=== PATIENT | male | born 1945 | race Caucasian/White ===

== ENCOUNTER 2024-01-25 10:08 | Outpatient (OUT) | payer MEDICARE, OTHER, SELFPAY ==
--- NOTE | 2024-01-25 | XR_ITS ---
The [address] [address] Patient Name: DANYELLE CAMARENA MRN: [id number] date: 1945 Sex: M Assigned Patient Location: Current Patient Location: Accession/Order Number: [id number] Exam Date: 01/25/2024 10:11 Report Date: 01/26/2024 07:27 At the request of: DARCIE JIMENEZ Procedure: XR lumbar spine min 4V EXAMINATION: XR lumbar spine min 4V HISTORY: LOWER BACK PAIN COMPARISON: No relevant comparison available. FINDINGS: BONES: No fracture, significant spondylolisthesis, or bone lesion. No change in alignment during flexion and extension. Mild degenerative facet arthropathy L3-L4 through L5-S1. DISC SPACES: Mild narrowing L1-L2, L2-L3, L5-S1. PARASPINOUS: Negative. No paraspinous abnormality is seen. OTHER: Negative. XR/XR lumbar spine min 4V IMPRESSION: 1. Multilevel mild degenerative disc disease and mild degenerative facet arthropathy. Electronically authenticated by: ART HUGHES Date: 01/26/2024 07:27
== END 2024-01-25 10:09 | disposition home or self-care (01) ==
PROVIDERS: Visit Provider Orthopaedic Surgery Orthopaedic Surgery of the Spine
DX: M54.50 Low back pain, unspecified (principal); M51.369 Other intervertebral disc degeneration, lumbar region without mention of lumbar back pain or lower extremity pain
CPT/HCPCS: 72110

== ENCOUNTER 2024-02-08 08:24 | Outpatient (OUT) | payer MEDICARE, OTHER, SELFPAY ==
--- NOTE | 2024-02-08 08:28 | MR_ITS ---
The [address] [address] Patient Name: DANYELLE CAMARENA MRN: [id number] date: 1945 Sex: M Assigned Patient Location: MRI Current Patient Location: MRI Accession/Order Number: [id number] Exam Date: 02/08/2024 08:43 Report Date: 02/08/2024 09:43 At the request of: MADELIN MASON Procedure: MR lumbar spine wo con MR lumbar spine wo con, 02/08/2024 8:43 AM EST INDICATION: Lumbar Back Pain, Spondylosis Of Lumbar Region COMPARISON: Prior x-ray of the lumbar spine dated 01/25/[address] of the abdomen dated 07/28/2014 TECHNIQUE: Multiplanar, multisequence MRI images of lumbar spine were obtained without contrast. FINDINGS: For dictation purposes, the lowest complete disc space in the lumbar spine considered as L5-S1. Bilateral renal lesions with T2 prolongation not fully characterized by this study and statistically may suggest simple renal cyst. There is signal abnormality on T1 and T2-weighted images in the vertebral bodies of visualized spine that may suggest bone marrow reconversion in appropriate clinical setting. There is loss of normal physiologic lumbar lordosis. The vertebral height is preserved. The conus medullaris is at the level of L1. No signal abnormality within the visualized spinal cord is noted. Possible lipid poor hemangioma within the body of L1. No neural foraminal narrowing or canal stenoses at the level of T12-L1 and L1-L2 is noted. At the level of L2-L3, there are disc bulge with mild bilateral neuroforaminal narrowing and no canal stenosis. At the level of L3-4, there are disc bulge with bilateral moderate neuroforaminal narrowing and moderate canal stenosis. There is ligamentum flavum thickening and epidural lipomatosis and facet joint arthrosis contributing to canal stenosis at this level. At the level of L4-5, there are disc bulge with severe bilateral neuroforaminal narrowing and severe canal stenosis.There is ligamentum flavum thickening and epidural lipomatosis and facet joint arthrosis contributing to canal stenosis at this level. At the level of L5-S1, there are disc bulge with with superimposed left lateral disc extrusion with inferior migration with severe bilateral neuroforaminal narrowing and no canal stenosis. Bilateral S1 nerve roots are in close contact with the disc bulge in the lateral recesses. The paraspinal muscles are unremarkable. MR/MR lumbar spine wo con IMPRESSION: Moderate to severe degenerative changes of lumbar spine in particular at L3-L4, L4-L5 and L5-S1. Electronically authenticated by: PALLAVI ZENG Date: 02/08/2024 09:43
--- OUTSIDE RECORDS SUMMARY | 2024-02-08 08:30 | XMS_ITS | CCD ---
Author Organization [facility] Care Team Providers Care Forest Firefighter Name Role Phone LAURE ARDON Referring Unavailable BELINDA STEPHEN Primary Care Unavailable ANGEL JIM V. Referring Unavailable BELINDA STEPHEN Primary Care Unavailable KIRIT SYKES Admitting Unavailable KIRIT SYKES Attending Unavailable BELINDA STEPHEN Primary Care Unavailable ANNETTE BAILON Attending Unavailable BELINDA STEPHEN Primary Care Unavailable ANNETTE BAILON Attending Unavailable BELINDA STEPHEN Primary Care Unavailable LAURE ARDON Referring Unavailable BELINDA STEPHEN Primary Care Unavailable LAURE ARDON Referring Unavailable BELINDA STEPHEN Primary Care Unavailable LAURE ARDON Attending Unavailable BELINDA STEPHEN Referring Unavailable BELINDA STEPHEN Primary Care Unavailable LAURE ARDON Attending Unavailable BELINDA STEPHEN Referring Unavailable BELINDA STEPHEN Primary Care Unavailable LAURE ARDON Attending Unavailable BELINDA STEPHEN Referring Unavailable BELINDA STEPHEN Primary Care Unavailable Belinda Stephen MD Unavailable [phone] Belinda Stephen MD Primary Care Provider Belinda Stephen MD Primary Care Provider [phone] RICH GRIFFITH Attending Unavailab BELINDA Candelaria Attending Unavailable SOLEDAD CABRAL Attending Unavailab ARSALAN David Attending Unavailable SOLEDAD CABRAL Referring Unavailab ARSALAN David Attending Unavailable SOLEDAD CABRAL Referring Unavailab ARSALAN David Attending Unavailable SOLEDAD CABRAL Referring Unavailab AAMIR Mcfarland Attending Unavailable CABRAL, SOLEDAD Mclain Referring Unavailab le CABRAL, SOLEDAD Mclain Attending Unavailab le CABRAL, SOLEDAD Mclain Referring Unavailab le CLAYARSALAN Attending Unavailable CABRAL, SOLEDAD Mclain Referring Unavailab le JOAQUIN, JAIR Attending Unavailable CABRAL, SOLEDAD Mclain Referring Unavailab le JOAQUIN, JAIR Attending Unavailable CABRAL, SOLEDAD A Referring Unavailab le JOAQUIN, JAIR Attending Unavailable CABRAL, SOLEDAD Mclain Referring Unavailab le BLACKSTON, AAMIR Christensen Attending Unavailable CABRAL, SOLEDAD Mclain Referring Unavailab le JOAQUIN, JAIR Attending Unavailable CABRAL, SOLEDAD Mclain Referring Unavailab le JOAQUIN, JAIR Attending Unavailable CABRAL, SOLEDAD Mclain Referring Unavailab le JOAQUIN, JAIR Attending Unavailable CABRAL, SOLEDAD Mclain Referring Unavailab le CABRAL, SOLEDAD Mclain Attending Unavailab le CABRAL, SOLEDAD Mclain Attending Unavailab LAURE Maria. Referring Unavailable BELINDA STEPHEN Primary Care Unavailable REX STANTON Attending Unavailable BELINDA STEPHEN Referring Unavailable BELINDA STEPHEN Primary Care Unavailable ALEXANDRIA THOMSON Referring Unavailable BELINDA STEPHEN Primary Care Unavailable Allergies Allergy Classification Reported Allergen(s) Allergy Type Date of Onset Reaction(s) Facility (3 sources) Contrast media; Translations: [DYE] Propensity to adverse reactions to drug (disorder) 8 [facility] (8 sources) Mason - fruit; Translations: [ORANGE (FOOD COLOR)] Propensity to adverse reactions to food (disorder) 0 Other (See Comments) [facility] (20 sources) Penicillins; Translations: [PENICILLINS] Propensity to adverse reactions to drug (disorder) 8 Other (See Comments) [facility] (20 sources) Warfarin; Translations: [WARFARIN] Drug Allergy 8 GI bleeding [facility] Medications Current Medications Medication Drug Class(es) Dates Sig (Normalized) Sig (Original) aspirin 81 mg delayed release oral tablet (20 sources) Platelet Aggregation Inhibitor, Nonsteroidal Anti-inflammatory Drug take 1 tablet by mouth in the morning aspirin 81 MG EC tablet Take 81 mg by mouth in the morning. Active atorvastatin 20 mg oral tablet (20 sources) HMG-CoA Reductase Inhibitor Start: 11-29-2022 End: 01-17-2024 take 1 tablet by mouth in the morning atorvastatin (Lipitor) 20 MG tablet Take 20 mg by mouth in the morning. 11/29/2022 Active lisinopril 10 mg oral tablet (20 sources) Angiotensin Converting Enzyme Inhibitor Start: 11-29-2022 End: 01-17-2024 take 1 tablet by mouth in the morning lisinopril 10 MG tablet Take 10 mg by mouth in the morning and 10 mg in the evening. 11/29/2022 Active meclizine hydrochloride 25 mg oral tablet (20 sources) Antiemetic Start: 07-26-2023 take 0.5 tablet by mouth twice daily as needed for nausea meclizine (Antivert) 25 MG tablet Indications: Vertigo Take 0.5 tablets (12.5 mg) by mouth 2 (two) times a day as needed for dizziness or nausea 10 tablet 07/26/2023 Active 24 hr metoprolol succinate 50 mg extended release oral tablet (20 sources) beta-Adrenergic Natalia Start: 01-13-2023 End: 01-17-2024 take 1 tablet by mouth once daily metoprolol succinate XL (TOPROL XL) 50 mg 24 hr tablet Take 1 tablet (50 mg total) by mouth nightly. 90 tablet 2 01/17/2024 Active nitroglycerin 0.4 mg sublingual tablet (2 sources) Nitrate Vasodilator Start: 01-19-2020 nitroglycerin (NITROSTAT) 0.4 MG SL tablet Indications: Abnormal stress test , Hyperlipidemia, unspecified hyperlipidemia type 1 under the tongue as needed for angina, may repeat q5mins for up three doses 30 tablet 3 01/19/2020 Active Completed/Discontinued Medications Medication Drug Class(es) Dates Sig (Normalized) Sig (Original) predniSONE 10 mg oral tablet (9 sources) Start: 01-15-2024 End: 01-21-2024 take 1 tablet by mouth in the morning predniSONE (Deltasone) 10 MG tablet Indications: Low back pain radiating to left lower extremity Take 1 tablet (10 mg) by mouth in the morning and 1 tablet (10 mg) before bedtime. Do all this for 5 days. 10 tablet 01/15/2024 01/21/2024 Discontinued (Therapy completed) Start: 11-02-2023 End: 11-07-2023 take 1 tablet by mouth in the morning predniSONE (Deltasone) 10 MG tablet Indications: Lumbar pain Take 1 tablet (10 mg) by mouth in the morning and 1 tablet (10 mg) before bedtime. Do all this for 5 days. 10 tablet 11/02/2023 11/07/2023 Active Problems Active Problems Problem Classification Problem Date Documented Da te Episodic/Chronic Asthma (20 sources) Reactive airway disease; Translations: [Unspecified asthma, uncomplicated] Onset: 02-06-2023 02-06-2023 Chronic Cancer of prostate (20 sources) Malignant neoplasm of prostate; Translations: [Malignant tumor of prostate] Onset: 05-19-2020 02-06-2023 Chronic Cardiac dysrhythmias (20 sources) Irregular heart beat; Translations: [Cardiac arrhythmia, unspecified] Onset: 02-06-2023 02-06-2023 Chronic Conditions associated with dizziness or vertigo (20 sources) Meniere's disease of left inner ear; Translations: [Meniere's disease, left ear] Onset: 02-06-2023 02-06-2023 Chronic Conditions associated with dizziness or vertigo (1 source) Vertigo; Translations: [Dizziness and giddiness] 11-28-2023 Episodic Coronary atherosclerosis and other heart disease (20 sources) Coronary arteriosclerosis; Translations: [Atherosclerotic heart disease of [place] coronary artery without angina pectoris] Onset: 05-17-2020 02-06-2023 Chronic Disorders of lipid metabolism (20 sources) Hyperlipidemia; Translations: [Hyperlipidemia, unspecified] Onset: 04-23-2017 02-06-2023 Chronic Diverticulosis and diverticulitis (20 sources) Diverticulosis of sigmoid colon; Translations: [Diverticulosis of large intestine without perforation or abscess without bleeding] Onset: 02-06-2023 02-06-2023 Chronic Essential hypertension (20 sources) Essential hypertension; Translations: [Essential (primary) hypertension] Onset: 02-06-2023 02-06-2023 Chronic Other ear and sense organ disorders (20 sources) Asymmetrical sensorineural hearing loss; Translations: [Sensorineural hearing loss, bilateral] Onset: 02-06-2023 02-06-2023 Chronic Other nervous system disorders (20 sources) Chronic pain; Translations: [Other chronic pain] Onset: 02-06-2023 02-06-2023 Chronic Other nutritional; endocrine; and metabolic disorders (20 sources) Body mass index 30+ - obesity; Translations: [Obesity, unspecified] Onset: 02-16-2020 02-06-2023 Chronic Other screening for suspected conditions (not mental disorders or infectious disease) (3 sources) Abnormal findings on diagnostic imaging of other specified body structures; Translations: [MRI scan abnormal] Onset: 07-17-2023 07-17-2023 Chronic Other upper respiratory disease (20 sources) Allergic rhinitis; Translations: [Allergic rhinitis, unspecified] Onset: 02-06-2023 02-06-2023 Chronic Lindsey-; endo-; and myocarditis; cardiomyopathy (except that caused by tuberculosis or sexually transmitted disease) (20 sources) Cardiomyopathy; Translations: [Other cardiomyopathies] Onset: 02-06-2023 02-06-2023 Chronic Spondylosis; intervertebral disc disorders; other back problems (2 sources) Lumbar arthritis; Translations: [Spondylosis without myelopathy or radiculopathy, lumbar region] 01-21-2024 Chronic Transient cerebral ischemia (20 sources) Transient cerebral ischemia; Translations: [Transient cerebral ischemic attack, unspecified] Onset: 02-06-2023 02-06-2023 Chronic Unclassified (1 source) Prostate cancer ([facility]) [C61] Onset: 08-28-2023 Unclassified (1 source) Pre-op Exam Onset: 08-07-2023 Urinary tract infections (1 source) Urinary tract infection, site not specified; Translations: [Urinary tract infection, site not specified] Onset: 08-13-2023 Episodic Past or Other Problems Problem Classification Problem Date Documented Date Episodic/Chronic Calculus of urinary tract (20 sources) Kidney stone; Translations: [Calculus of kidney] Onset: 02-06-2023 02-06-2023 Episodic Complications of surgical procedures or medical care (20 sources) Delayed recovery from general anesthesia; Translations: [Other complications of anesthesia, initial encounter] Onset: 02-06-2023 02-06-2023 Episodic Mood disorders (2 sources) Mood disorders Onset: 07-30-2019 07-30-2019 Other connective tissue disease (20 sources) Increased muscle tone; Translations: [Other specified disorders of muscle] Onset: 02-06-2023 02-06-2023 Episodic Other ear and sense organ disorders (20 sources) Bilateral tinnitus; Translations: [Tinnitus, bilateral] Onset: 02-06-2023 02-06-2023 Episodic Other lower respiratory disease (20 sources) Cough; Translations: [Cough] Onset: 02-06-2023 02-06-2023 Episodic Other screening for suspected conditions (not mental disorders or infectious disease) (20 sources) Electrocardiogram abnormal; Translations: [Abnormal electrocardiogram [ECG] [EKG]] Onset: 01-19-2020 Resolved: 04-30-2018 02-06-2023 Episodic Spondylosis; intervertebral disc disorders; other back problems (20 sources) Sacroiliac disorder; Translations: [Sacrococcygeal disorders, not elsewhere classified] Onset: 02-06-2023 02-06-2023 Episodic Unclassified (2 sources) Onset: 07-30-2019 07-30-2019 Results Test Name Value Interpretation Reference Range Facility Lipid 1996 panelon 4 Cholesterol [Mass/Vol] 119 mg/dL Low 150-[address] [facility] Comment on above: Performed By: #### 2 4331-1 #### [facility] ([id number]) [address] [place] [address], [facility] [address] [place] [address] Cholesterol in HDL [Mass/Vol] 36 mg/dL Low >[address] [facility] Comment on above: Result Comment: HDL <40 mg/dL - High Risk HDL > or = 40mg/dL- Desirable HDL >60 mg/dL - Negative Risk Performed By: #### 2 4331-1 #### [facility] ([id number]) [address] [place] [address], [address] [place] [address] Cholesterol in LDL [Mass/Vol] 55 mg/dL Normal <[address] [facility] Comment on above: Result Comment: LDL <100 mg/dL - Desirable LDL >160 mg/dL - High Risk Performed By: #### 2 4331-1 #### [facility] ([id number]) [address], [address] [place] [address] Cholesterol in VLDL [Mass/Vol] 28 mg/dL Normal 0-[address] [facility] Comment on above: Performed By: #### 2 4331-1 #### [facility] ([id number]) [address] [address] CHOLESTEROL:HDL 3.3 Normal 1.0-5.[address] [facility] Comment on above: Performed By: #### 2 4331-1 #### [facility] ([id number]) [address], [facility] [address] [place] [address] Triglyceride [Mass/Vol] 140 mg/dL Normal 27-[address] [facility] Comment on above: Performed By: #### 2 4331-1 #### [facility] ([id number]) [address] [address] XR LUMBAR SPINE AP/LAT/FLEX/ EXT/OBLIQUESon 11-02-2023 XR LUMBAR SPINE AP/LAT/FLEX/EXT/O BLIQUES TITLE OF EXAM: XR - LUMBAR SPINE W FLEX EXTENSION REASON FOR EXAM: Low back pain. TECHNIQUE: 7 radiographs of the lumbar spine COMPARISONS: None. FINDINGS: No fracture; normal vertebral body heights. Near anatomic alignment of the vertebral bodies and posterior elements; no significant listhesis. Radiographically mild to moderate lower lumbar/lumbosacral facet osteoarthrosis favored greatest at L5-S1. Lower lumbar spinous process widening with reduced interspinous space. Anterior endplate proliferation at L2-3 and L3-4. Intervertebral spaces are fairly well-preserved. Mild to moderate aortoiliac calcific arteriosclerosis. IMPRESSION: No fracture or significant listhesis. Chronic/degenerative findings as detailed. DICTATED ON: 11/02/2023 9:58 AM This report has been electronically signed and approved by the interpreting radiologist. Electronically Signed Pasha Meza M.D. 2023-11-02 09:59:16 Normal Not Available Surgical Pathologyon 024 Surgical Pathology Normal [facility] Comment on above: Result Comment: [facility] [address] [place] [address] Surgical Pathology Consultation ADDENDUM ME Patient Name:CRISTIAN WAGNER:1945 (Age: 77)Gender:MTaken:10/03/2023eported:10/16/2023hysician(s):Laure Ardon M.D. ([phone])Copy To: Rec. #:[id number]: #[id number] Final Pathologic Diagnosis A request for Prolaris Prostate was received _(10/03/23) for patient Cristian Wagner ( ) from . The test is to be performed on tissue from case [id number] (08/28/23). The case report, slides, and blocks for the cited accession were retrieved from archives. The pathologist whose signature appears below reviewed the original pathology report, examined candidate H&E slides, and selected block (7A) as appropriate to the specifications of the ordered molecular analysis. Paraffin block was prepared and forwarded to [facility] where the subject molecular test will be performed. An addendum report will be issued when the results of this molecular test are available. Report Electronically Signed Out lxn/10/16/2023Cleveland Carlos MD Addendum ([facility]) Date Reported: 10/26/2023 Results of Prolaris??? Biopsy Test dated 10/11/2023 are received from [employer] [address] [place] [address]. Please see the complete report from [employer] in the patient's EMR. Electronically Signed Out Cleveland Carlos MD Interpretation performed at [facility], [address] [place] [address], License number: [id number]. Clinical History Prostatic Carcinoma Gross Description Per Dr. Ardon???s written order, [facility] Prolaris Prostate is being performed on block 7A, from case [id number]. [facility] Specimen(s) Received [facility] Prolaris Prostate Fee Codes(s): 91783 Surgical Pathologyon 024 Surgical Pathology Normal [facility] Comment on above: Result Comment: [facility] [address] [place] [address] Surgical Pathology Consultation Patient Name:CRISTIAN WAGNER:1945 (Age: 77)Gender:MTaken:4Reported:4Physician(s):Kirit Sykes MD ([phone])Copy To:[facility] #:[id number]. Rec. #:[id number]: #[id number] Final Pathologic Diagnosis 1. Prostate core biopsy, left lateral posterior apex: Pure PIN--like (prostatic intraepithelial neoplasia-like pattern) PROSTATIC ADENOCARCINOMA, Judith score 3+3 = 6 (grade group 1), involving 90-100% lengths of 3 of 4 cores (90% length of the entire tissue submitted in this part). See comment. 2. Prostate core biopsy, left lateral posterior base: Pure PIN--like PROSTATIC ADENOCARCINOMA, Hamilton score 3+3 = 6 (grade group 1), involving 60% length of the core. See comment. 3. Prostate core biopsy, left lateral mid apex: Benign prostate tissue; no neoplasm. 4. Prostate core biopsy, left lateral mid base: Benign prostate tissue; no neoplasm. 5. Prostate core biopsy, left lateral anterior apex: Benign prostate tissue; no neoplasm. 6. Prostate core biopsy, left lateral anterior base: Benign prostate tissue; no neoplasm. 7. Prostate core biopsy, left medial posterior apex: Pure PIN--like PROSTATIC ADENOCARCINOMA, Judith score 3+3 = 6 (grade group 1), involving 65% length of the core. See comment. 8. Prostate core biopsy, left medial posterior base: A minute focus of atypical glands, SUSPICIOUS for prostatic carcinoma. 9. Prostate core biopsy, left medial mid apex: Pure PIN--like PROSTATIC ADENOCARCINOMA, Hamilton score 3+3 = 6 (grade group 1), involving 100% lengths of each of the 2 of total 3 submitted cores (40% length of the entire tissue submitted in this part). See comment. 10. Prostate core biopsy, left medial mid base: Benign prostate tissue; no neoplasm. 11. Prostate core biopsy, left medial anterior apex: Benign prostate tissue; no neoplasm. 12. Prostate core biopsy, left medial anterior base: Benign prostate tissue; no neoplasm. 13. Prostate core biopsy, right medial posterior apex: Benign prostate tissue; no neoplasm. See comment. 14. Prostate core biopsy, right medial posterior base: Benign prostate tissue; no neoplasm. 15. Prostate core biopsy, right medial mid apex: Benign prostate tissue; no neoplasm. 16. Prostate core biopsy, right medial mid base: Benign prostate tissue; no neoplasm. See comment. 17. Prostate core biopsy, right medial anterior apex: Benign prostate tissue; no neoplasm. 18. Prostate core biopsy, right medial anterior base: Benign prostate tissue; no neoplasm. 19. Prostate core biopsy, right lateral posterior apex: Benign prostate tissue; no neoplasm. 20. Prostate core biopsy, right lateral posterior base: Benign prostate tissue; no neoplasm. 21. Prostate core biopsy, right lateral mid apex: Benign prostate tissue; no neoplasm. 22. Prostate core biopsy, right lateral mid base: Benign prostate tissue; no neoplasm. 23. Prostate core biopsy, right lateral anterior apex: Benign prostate tissue; no neoplasm. 24. Prostate core biopsy, right lateral anterior base: Benign prostate tissue; no neoplasm. 25. Prostate core biopsy, LXPZpl: Benign prostate tissue; no neoplasm. 26. Prostate core biopsy, RBPZa: Pure PIN--like PROSTATIC ADENOCARCINOMA, Hamilton score 3+3 = 6 (grade group 1), involving 90-100% lengths of 4 of 4 cores (95% length of the entire tissue submitted in this part). See comment. COMMENT: Immunohistochemistry (with appropriate controls) was performed on specimen parts 1, 2, 7, 9, 13, 16 and 25, revealing the following results. In specimen parts 1, 2, 7, 9 and 25, the diagnosis of prostatic carcinoma is further supported by immunohistochemistry revealing positive staining for P504S with negative staining for basal cell layer markers (K903 and p63). In parts 13 and 16, the foci of interest reveals negative staining for P504S, with at least partial staining for basal cell layer markers, consistent with a benign diagnosis in these parts. Given the uncommon pattern of this carcinoma, the sections were reviewed with multiple colleagues in intradepartmental consultation. Report Electronically Signed Out wak09/05/2023Cleveland Carlos MD Interpretation performed at [facility], [address] [place] [address], License number: [id number]. Clinical History Prostate cancer, abnormal MRI. Gross Description 1. Received in formalin labeled [facility], left lateral posterior apex are four pale espinoza, delicate needle core biopsy segments 0.2-0.4 cm in length, entirely submitted in a single cassette. (1, ns, [id number] -1, m7) JG 2. Received in formalin labeled [facility], left lateral posterior base is a pale espinoza, delicate needle core biopsy segment 1.1 cm in length, entirely submitted in a single cassette (more content not included)... BASIC METABOLIC PANLon 08-12 Anion gap [Moles/Vol] 6 mmol/L Normal 5-15 [facility] Comment on above: Performed By: #### B MP #### [facility] ([id number]) [address] [facility], [address] [place] [address] Calcium [Mass/Vol] 9.1 mg/dL Normal 8.5-10.5 [facility] Comment on above: Performed By: #### B MP #### [facility] ([id number]) [address] [place] [address], [address] [place] [address] Chloride [Moles/Vol] 107 mmol/L Normal 98-109 [facility] Comment on above: Performed By: #### B MP #### [facility] ([id number]) [address], [address] [place] [address] CO2 [Moles/Vol] 28 mmol/L Normal 22-32 [facility] Comment on above: Performed By: #### B MP #### [facility] ([id number]) [address], [address] [place] [address] Creatinine [Mass/Vol] 1.35 mg/dL High 0.60-1.30 [facility] Comment on above: Result Comment: METH OD TRACEABLE TO IDMS STANDARD Performed By: #### B MP #### [facility] ([id number]) [address], [address] [place] [address] GFR/1.73 sq M.predicted among non-blacks MDRD (S/P/Bld) [Vol rate/Area] 53 mL/min/{1.73_m2} Low >59 [facility] Comment on above: Result Comment: Reported eGFR is based on the CKD-EPI 2020 equation that does not use a race coefficient. Performed By: #### B MP #### [facility] ([id number]) [address], [address] [place] [address] Glucose [Mass/Vol] 91 mg/dL Normal 65-99 [facility] Comment on above: Performed By: #### B MP #### [facility] ([id number]) [address], [address] [place] [address] Potassium [Moles/Vol] 4.7 mmol/L Normal 3.5-5.0 [facility] Comment on above: Performed By: #### B MP #### [facility] ([id number]) [address], [address] [place] [address] Sodium [Moles/Vol] 141 mmol/L Normal 134-146 [facility] Comment on above: Performed By: #### B MP #### [facility] ([id number]) [address], [address] [place] [address] Urea nitrogen [Mass/Vol] 17 mg/dL Normal 5-27 [facility] Comment on above: Performed By: #### B MP #### [facility] ([id number]) [address], [address] [place] [address] URINALYSISon 08-13-2023 Bilirubin Ql (U) Negative Normal NEG [facility] Comment on above: Performed By: #### U A #### [facility] ([id number]) [address], [address] [place] [address] BLOOD/HGB Negative Normal NEG [facility] Comment on above: Performed By: #### U A #### [facility] ([id number]) [address], [address] [place] [address] Color (U) YELLOW Normal YELLOW [facility] Comment on above: Performed By: #### U A #### [facility] ([id number]) [address], [address] [place] [address] Glucose Ql (U) Negative Normal NEG [facility] Comment on above: Performed By: #### U A #### [facility] ([id number]) [address], [address] [place] [address] Ketones Ql (U) Negative Normal NEG [facility] Comment on above: Performed By: #### U A #### [facility] ([id number]) [address], [address] [place] [address] Leukocyte esterase Test strip Ql (U) Trace Abnormal NEG [facility] Comment on above: Performed By: #### U A #### [facility] ([id number]) [address], [address] [place] [address] MUCOUS PRESENT Abnormal NONE [facility] Comment on above: Performed By: #### U A #### [facility] ([id number]) [address], [address] [place] [address] Nitrite Ql (U) Negative Normal NEG [facility] Comment on above: Performed By: #### U A #### [facility] ([id number]) [address], [address] [place] [address] pH (U) 6.0 [pH] Normal 5.0-8.5 [facility] Comment on above: Performed By: #### U A #### [facility] ([id number]) [address], [address] [place] [address] Protein Ql (U) Negative Normal NEG [facility] Comment on above: Performed By: #### U A #### [facility] ([id number]) [address] [place] [address] R.B.CELLS 1 /hpf Normal 0-5 [facility] Comment on above: Performed By: #### U A #### [facility] ([id number]) [address] [place] [address] Specific gravity (U) [Rel density] 1.015 Normal 1.003-1.035 [facility] Comment on above: Performed By: #### U A #### [facility] ([id number]) [address] [place] [address] SQUAMOUS EPITHELIUM <1 Normal 0-5 [facility] Comment on above: Performed By: #### U A #### [facility] ([id number]) [address], [address] [place] [address] TURBIDITY CLEAR Normal CLEAR [facility] Comment on above: Performed By: #### U A #### [facility] ([id number]) [address] [place] [address] Urobilinogen (U) [Mass/Vol] mg/dL Normal <1.1 [facility] Comment on above: Performed By: #### U A #### [facility] ([id number]) [address], [address] [place] [address] W.B.CELLS 3 /hpf Normal 0-5 [facility] Comment on above: Performed By: #### U A #### [facility] ([id number]) [address] [place] [address] URINE CULTUREon 08-13-2023 Bacteria identified Cx Nom (U) CULTURE RESULTS <10,000 ORGANISMS/ML NORMAL URO GENITAL NICHELLE Normal [facility] Comment on above: Performed By: #### 6 30-4 #### [facility] ([id number]) [address], [address] [place] [address] MR PROSTATE W WO CONTon -3 MR PROSTATE W WO CONT MR PROSTATE W WO CONT CLINICAL INFORMATION: Prostate cancer ([facility]). . Most recent PSA of 11.9 TECHNIQUE: Multisequence multiplanar MRI of the prostate without and with contrast in accordance with PI-RADS technical recommendations. COMPARISON: 11/09/2020 FINDINGS: Size: 6.1 x 5.0?x 5.1 cm Volume: 81 mL PSA Density: 0.15 ng/mL^2 There remains sequelae of prior hemorrhage at the left posterior/posterolateral apical peripheral zone. Persistently abnormal diffusion signal is noted. Dynamic post contrast sequences demonstrate abnormal nodular and heterogeneous early arterial phase hyperenhancement throughout this region (see dedicated subtraction sequences). Additionally, along the anterior seminal vesicles, posterior to the bladder, there is been interval development of a bilobed 5.5 x 3.4 cm complex fluid collection. Along the inferior aspect of this collection appears to be areas of abnormal enhancing intermediate T2 signal, measuring 1.7 cm on series 7 image 22 for example and 1.5 cm on series 7 image 10. Corresponding markedly normal diffusion signal seen in these regions as well. TRANSITIONAL ZONE: There is multinodular enlargement of the transition zone, in keeping with BPH changes. Neurovascular Bundles: Cystic changes along the left neurovascular bundle. Seminal Vesicles: Mass effect and posterior displacement of the seminal vesicles do not solid/cystic lesion insinuating along the posterior bladder Pelvic Lymph Nodes: Within normal limits Bones: Within normal limits Other findings: Trace free fluid. No distal hydroureter. Small fat-containing left inguinal hernia. IMPRESSION: Markedly abnormal solid/cystic masslike abnormality along the basal prostate, posteriorly displacing the seminal vesicles. Highly suspicious enhancement/diffusion signal noted. Finding is new since prior. Progressive diffusion restrictive, enhancing abnormality at the left posterior apex, also with cystic component at the midline. Sequelae of prior hemorrhage also seen in this region. Overall, possibility of variant/cystic prostate malignancy (with extracapsular extension) is raised. Recommend follow-up PSMA PET/CT, sampling, etc. THIS REPORT CONTAINS A SIGNIFICANT RESULT AND/OR RECOMMENDATION, WHICH REQUIRES THE ATTENTION OF THE LICENSED CAREGIVER RESPONSIBLE FOR THIS PATIENT. THEREFORE, I SPECIFICALLY DESIGNATED THIS REPORT TO BE TELEPHONED BY THE RADIOLOGY DEPARTMENT (07/05/2023 1:30 PM). Finalized by Laure Rushing MD on 07/05/2023 1:34 PM Normal [facility] Prostate specific Ag [Mass/V ol]on 07-05-2023 PROSTATIC SPEC ANT 14.49 ng/mL High 0.00-4.[address] [facility] Comment on above: Result Comment: The method used for this test is Luda Miguel DXI chemiluminescent immunoassay. Values obtained by different assay methods cannot be used interchangeably. Performed By: #### 2 [id number] #### [facility] ([id number]) [address] [place] [address] Vital Signs Date Time Vital Sign Value Performing Clinician Ani kamara 01-21-2024 13:21-0500 Body mass index (BMI) [Ratio] 31.43 kg/m2 Soledad Cabral CAVITY PUMP OPERATOR Work Phone: [facility] 01-21-2024 13:21-0500 Body temperature 97.39 [degF] Soledad Cabral CAVITY PUMP OPERATOR Work Phone: [facility] 01-21-2024 13:21-0500 Body weight 90.36 kg Soledad Cabral CAVITY PUMP OPERATOR Work Phone: [facility] 01-21-2024 13:21-0500 Diastolic blood pressure 84 mm[Hg] Soledad Cabral CAVITY PUMP OPERATOR Work Phone: [facility] 01-21-2024 13:21-0500 Systolic blood pressure 128 mm[Hg] Soledad Cabral CAVITY PUMP OPERATOR Work Phone: [facility] 01-15-2024 15:00-0500 Body mass index (BMI) [Ratio] 31.65 kg/m2 Soledad Cabral CAVITY PUMP OPERATOR Work Phone: [facility] 01-15-2024 15:00-0500 Body weight 90.99 kg Soledad Cabral CAVITY PUMP OPERATOR Work Phone: [facility] 01-15-2024 15:00-0500 Diastolic blood pressure 82 mm[Hg] Soledad Cabral CAVITY PUMP OPERATOR Work Phone: [facility] 01-15-2024 15:00-0500 Systolic blood pressure 124 mm[Hg] Soledad Cabral CAVITY PUMP OPERATOR Work Phone: [facility] 11-02-2023 10:31-0400 Body height 169.5 cm Soledad Cabral CAVITY PUMP OPERATOR Work Phone: [facility] 11-02-2023 10:31-0400 Body mass index (BMI) [Ratio] 31.4 kg/m2 Soledad Cabral CAVITY PUMP OPERATOR Work Phone: [facility] 11-02-2023 10:31-0400 Body weight 90.27 kg Soledad Cabral CAVITY PUMP OPERATOR Work Phone: [facility] 11-02-2023 10:31-0400 Diastolic blood pressure 80 mm[Hg] Soledad Cabral CAVITY PUMP OPERATOR Work Phone: [facility] 11-02-2023 10:31-0400 Heart rate 76 /min Soledad Cabral CAVITY PUMP OPERATOR Work Phone: [facility] 11-02-2023 10:31-0400 Respiratory rate 18 /min Soledad Cabral CAVITY PUMP OPERATOR Work Phone: [facility] 11-02-2023 10:31-0400 SaO2% (BldA) [Mass fraction] 99 % Soledad Cabral CAVITY PUMP OPERATOR Work Phone: [facility] 11-02-2023 10:31-0400 Systolic blood pressure 128 mm[Hg] Soledad Cabral CAVITY PUMP OPERATOR Work Phone: [facility] Encounters Encounter Date Encounter Type Care Provider Facility Start: 01-23-2024 End: 01-23-2024 ambulatory A[place]RIA Efren [facility] Start: 01-21-2024 End: 01-21-2024 Bamboo flowsheet Soledad Cabral CAVITY PUMP OPERATOR Work Phone: [facility] Start: 01-21-2024 End: 01-21-2024 Bamboo flowsheet Soledad Cabral CAVITY PUMP OPERATOR Work Phone: [facility] Start: 01-21-2024 End: 01-21-2024 Office outpatient visit 25 minutes Soledad Cabral CAVITY PUMP OPERATOR Work Phone: [facility] Comment on above: Arthritis of lumbar spine (Primary Dx); Essential hypertension (CMS/HCC) Start: 01-21-2024 End: 01-21-2024 ambulatory SOLEDAD OREILLYK Not Available Start: 01-15-2024 End: 01-15-2024 Office outpatient visit 25 minutes Soledad Cabral CAVITY PUMP OPERATOR Work Phone: [facility] Comment on above: Low back pain radiat ing to left lower extremity (Primary Dx); Essential hypertension (CMS/HCC) Start: 01-15-2024 End: 01-15-2024 ambulatory SOLEDAD OREILLYK Not Available Start: 01-15-2024 End: 01-15-2024 Bamboo flowsheet Soledad Cabral CAVITY PUMP OPERATOR Work Phone: [facility] Start: 01-15-2024 End: 01-15-2024 Bamboo flowsheet Soledad Oreillyk CAVITY PUMP OPERATOR Work Phone: [facility] Start: 01-14-2024 End: 01-17-2024 Refill Pinky Eason ENGINEERING SPECIALIST-MOTORCYCLE REPAIRER Work Phone: [facility] Comment on above: Med Refill Start: 12-07-2023 End: 12-07-2023 Bamboo flowsheet Jair Murphy MANAGER LINE [facility] Start: 12-07-2023 End: 12-07-2023 Bamboo flowsheet Jair Murphy MANAGER LINE [facility] Start: 12-07-2023 End: 12-07-2023 ambulatory Jair Murphy MANAGER LINE [facility] Comment on above: Acute right-sided lo w back pain without sciatica (Primary Dx) Start: 12-05-2023 End: 12-05-2023 Bamboo flowsheet Jair Murphy MANAGER LINE [facility] Start: 12-05-2023 End: 12-05-2023 Bamboo flowstanika Murphy MANAGER LINE [facility] Start: 12-05-2023 End: 12-05-2023 ambulatory Jair Murphy MANAGER LINE [facility] Comment on above: Acute right-sided lo w back pain without sciatica (Primary Dx) Start: 11-30-2023 End: 11-30-2023 Bamboo flowstanika Murphy MANAGER LINE [facility] Start: 11-30-2023 End: 11-30-2023 Bamboo flowstanika Murphy MANAGER LINE [facility] Start: 11-30-2023 End: 11-30-2023 ambulatory Jair Murphy MANAGER LINE [facility] Comment on above: Acute right-sided lo w back pain without sciatica (Primary Dx) Start: 11-28-2023 End: 11-28-2023 Bamboo flowsheet Aamir Hermosillo PT Work Phone: [facility] Start: 11-28-2023 End: 11-28-2023 Bamboo flowsheet Aamir Hermosillo PT Work Phone: [facility] Start: 11-28-2023 End: 11-28-2023 ambulatory Aamir Hermosillo PT Work Phone: [facility] Comment on above: Acute right-sided lo w back pain without sciatica (Primary Dx); Vertigo Start: 11-22-2023 End: 11-22-2023 Bamboo flowsheet Jair Murphy MANAGER LINE [facility] Start: 11-22-2023 End: 11-22-2023 Bamboo flowsheet Jair Murphy MANAGER LINE [facility] Start: 11-22-2023 End: 11-22-2023 ambulatory Jair Murphy MANAGER LINE [facility] Comment on above: Acute right-sided lo w back pain without sciatica (Primary Dx) Start: 11-19-2023 End: 11-19-2023 ambulatory Jair Murphy MANAGER LINE [facility] Comment on above: Acute right-sided lo w back pain without sciatica (Primary Dx) Start: 11-19-2023 End: 11-19-2023 Bamboo flowsheet Jair Murphy MANAGER LINE [facility] Start: 11-19-2023 End: 11-19-2023 Bamboo flowsheet Jair Murphy MANAGER LINE [facility] Start: 11-15-2023 End: 11-15-2023 ambulatory Jair Murphy MANAGER LINE [facility] Comment on above: Acute right-sided lo w back pain without sciatica (Primary Dx) Start: 11-15-2023 End: 11-15-2023 Bamboo flowsheet Jair Murphy MANAGER LINE [facility] Start: 11-15-2023 End: 11-15-2023 Bamboo flowsheet Jair Murphy MANAGER LINE [facility] Start: 11-12-2023 End: 11-12-2023 ambulatory Arsalan Clay PT [facility] Comment on above: Acute right-sided lo w back pain without sciatica (Primary Dx) Start: 11-12-2023 End: 11-12-2023 Bamboo flowsheet Arsalan Clay PT [facility] Start: 11-12-2023 End: 11-12-2023 Bamboo flowsheet Arsalan Clay PT [facility] Start: 11-06-2023 End: 11-06-2023 Telephone encounter Belinda Stephen MD Work Phone: [facility] Start: 11-05-2023 End: 11-07-2023 Orders Only Soledad Cabral NP Work Phone: [facility] Comment on above: Acute right-sided lo w back pain without sciatica (Primary Dx) Start: 11-02-2023 End: 11-02-2023 Bamboo flowsheet Soledad Cabral CAVITY PUMP OPERATOR Work Phone: [facility] Start: 11-02-2023 End: 11-02-2023 Bamboo flowsheet Soledad Cabral CAVITY PUMP OPERATOR Work Phone: [facility] Start: 11-02-2023 End: 11-02-2023 Office outpatient visit 25 minutes Soledad Cabral CAVITY PUMP OPERATOR Work Phone: [facility] Comment on above: Other chronic pain ( Primary Dx); Lumbar pain Start: 11-02-2023 End: 11-02-2023 ambulatory SOLEDAD CABRAL Not Available Start: 10-29-2023 End: 10-29-2023 ambulatory [facility] Start: 10-03-2023 End: 10-03-2023 ambulatory [facility] Start: 10-03-2023 End: 10-03-2023 ambulatory [facility] Start: 09-17-2023 End: 09-17-2023 ambulatory [facility] Start: 08-28-2023 End: 08-28-2023 Evaluation and management of inpatient ANNETTE BAILON [facility] Start: 08-28-2023 End: 08-28-2023 Evaluation and management of inpatient KIRIT SYKES [facility] Start: 08-13-2023 End: 08-13-2023 ambulatory JIM ORTIZ [facility] Start: 08-13-2023 Encounter for other preprocedural examination [facility] Start: 08-07-2023 End: 08-07-2023 ambulatory AAMIR HERMOSILLO Not Available Start: 08-07-2023 End: 08-07[facility] Start[facility] 08-02-2023 End: 08-02-2023 ambulatory ARSALAN CLAY Not Available Start: 07-31-2023 End: 07-31-2023 ambulatory ARSALAN CLAY Not Available Start: 07-30-2023 End: 07-30-2023 ambulatory ARSALAN CLAY Not Available Start: 07-26-2023 End: 07-26-2023 ambulatory SOLEDAD BRITOPATRICK Not Available Start: 07-12-2023 End: 07-12-2023 ambulatory BELINDA STEPHEN Not Available Start: 07-11-2023 End: 07-11-2023 ambulatory [facility] Start: 07-05-2023 End: 07-05-2023 ambulatory LAURE [facility] Start: 07-03-2023 End: 07-03-2023 ambulatory LAURE [facility] Start: 02-06-2023 Patient encounter status Heide Stephen MD Work Phone: [facility] Start: 02-06-2023 End: 02-06-2023 ambulatory RICH DUMONTMARLEE Not Available Start: 06-20-2018 Patient encounter status Binh sadi Eason ENGINEERING SPECIALIST-MOTORCYCLE REPAIRER Work Phone: [facility] Procedures Date Procedure Procedure Detail Performing Clinician Start: 07-11-2023 Follow-up visit Follow-up LAURE ARDON Plan of Treatment Date Care Activity Detail Author Start: 10-28-2024 Tobacco Screening Tobacco Screening [facility] Start: 07-11-2024 Medicare Annual Well ness (AWV) Medicare Annual Wellness (AWV) [facility] Start: 04-28-2024 End: 04-28-2024 Patient encounter procedure 04/28/2024 1:45 PM EDT Office Visit [facility] [address] [place] [phone] Laure Ardon MD [facility] [place] [address] [facility] Start: 01-21-2024 End: 01-21-2024 Patient encounter procedure [facility] Comment on above: Arrived Start: 01-15-2024 End: 01-15-2024 Patient encounter procedure 01/15/2024 3:00 PM EST Office Visit [facility] [address] [place] [id number] Soledad Cabral, CAVITY PUMP OPERATOR [address] [facility] [place], [place] [id number] Arrived [facility] Comment on above: Arrived Start: 12-07-2023 End: 12-07-2023 ambulatory [facility] Comment on above: Arrived Start: 12-05-2023 End: 12-05-2023 ambulatory [facility] Comment on above: Arrived Start: 11-30-2023 End: 11-30-2023 ambulatory [facility] Comment on above: Acute right-sided lo w back pain without sciatica (Primary Dx) Start: 11-28-2023 End: 11-28-2023 ambulatory [facility] Comment on above: Arrived Start: 11-22-2023 End: 11-22-2023 ambulatory [facility] Comment on above: Arrived Start: 11-19-2023 End: 11-19-2023 ambulatory [facility] Comment on above: Arrived Start: 11-15-2023 End: 11-15-2023 ambulatory [facility] Comment on above: Arrived Start: 11-02-2023 End: 11-01-2024 XR Lumbar spine 4 Views [facility] Work Phone: Comment on above: Expected: 11/02/2023 , Expires: 11/01/2024 Start: 11-02-2023 End: 11-02-2023 Patient encounter procedure 11/02/2023 10:30 AM EDT Office Visit [facility] [address] [place] [address] Soledad Cabral, CAVITY PUMP OPERATOR [address] [facility] [place] [address] Arrived [facility] Comment on above: Arrived Start: 10-07-2023 COVID-19 Vaccine ( season) COVID-19 Vaccine ( season) [facility] Start: 10-07-2023 Influenza vaccination [facility] Start: 09-15-2013 Administration of varicella zoster vaccine Zoster (Shingles) Vaccine (1 of 2) [facility] Start: 10-21-2008 Fall Risk Screening Fall Risk Screen ing [facility] Start: 10-21-1962 DTaP,Tdap and Td Vaccines (1 - Tdap) DTaP,Tdap and Td Vaccines (1 - Tdap) [facility] Start: 1955 Depression Screening Depression Scre [facility] End: 01-16-2025 Lipid panel Lipid panel Lab Routine Hyperlipidemia, unspecified hyperlipidemia type 1 Occurrences starting 01/17/2024 until 01/16/2025 [place] Work Phone: Comment on above: 1 Occurrences starti ng 01/17/2024 until 01/16/2025 Immunizations Immunization Date Immunization Notes Care Provider Fa [facility] 11-03-2022 Influenza, Seasonal, Quadrivalent, Adjuvanted Belinda Stephen MD Work Phone: [facility] 11-03-2022 influenza virus vacc ine, unspecified formulation Belinda Stephen MD Work Phone: [facility] 04-05-2021 pneumococcal polysaccharide vaccine, 23 valent Belinda Stephen MD Work Phone: [facility] 10-23-2020 Influenza, Seasonal, Quadrivalent, Adjuvanted Belinda Stephen MD Work Phone: [facility] 10-17-2019 influenza, injectabl e, quadrivalent, preservative free Belinda Stephen MD Work Phone: [facility] 10-29-2018 Seasonal trivalent influenza vaccine, adjuvanted, preservative free Belinda Stephen MD Work Phone: [facility] 11-27-2017 Seasonal trivalent influenza vaccine, adjuvanted, preservative free Belinda Stephen MD Work Phone: [facility] 02-19-2017 Influenza, injectabl e, Madin Coleman Canine Kidney, preservative free, quadrivalent Belinda Stephen MD Work Phone: [facility] 11-23-2014 influenza, high dose seasonal, preservative-free Belinda Stephen MD Work Phone: [facility] 08-18-2014 pneumococcal conjuga te vaccine, 13 valent Belinda Stephen MD Work Phone: [facility] 12-04-2013 influenza virus vacc ine, whole virus Belinda Stephen MD Work Phone: [facility] 11-05-2013 influenza, injectabl e, quadrivalent, preservative free Belinda Stephen MD Work Phone: [facility] 07-21-2013 zoster vaccine, live Kalyn Stephen MD Work Phone: [facility] 07-21-2013 zoster vaccine, unspecified formulation Pinky Eason ENGINEERING SPECIALIST[facility] Work Phone: [facility] 11-05-2012 seasonal influenza, intradermal, preservative free Belinda Stephen MD Work Phone: [facility] 02-06-2008 pneumococcal polysaccharide vaccine, 23 valent Belinda Stephen MD Work Phone: [facility] Payers Date Payer Category Payer Managed Care Other (unspecified) [employer] [place] [id number] 2016 Private Health Insurance [id number] 2016 Unknown [id number] 2008 Medicare [id number] 2008 Medicare [id number] 1943 Unknown [id number] 2.16840.1.366461.3.579.2 .1285 1943 Unknown [id number] 2..840.1.493688.3.579.2 .1285 1943 Unknown [id number] 2..840.1.436992.3.579.2 .1285 1943 Unknown [id number] 2.840.1.433059.3.579.2 .1285 1943 Unknown [id number] 2.840.1.489004.3.579.2 .1285 1943 Unknown [id number] 2..840.1.309023.3.579.2 .1285 1943 Unknown [id number] 2..840.1.401416.3.579.2 .1285 1943 Unknown [id number] 2.840.1.772911.3.579.2 .1285 1943 Unknown [id number] 2..840.1.746902.3.579.2 .1285 1943 Unknown [id number] 2.16.840.1.600505.3.579.2 .1285 1943 Unknown [id number] 2.16.840.1.263145.3.579.2 .1258 1943 Unknown [id number] 2.16.840.1.067747.3.579.2 .1258 1943 Unknown [id number] 2.16.840.1.814755.3.579.2 .1258 1943 Unknown [id number] 2.16.840.1.174013.3.579.2 .1258 1943 Unknown [id number] 2.16.840.1.622848.3.579.2 .1258 1943 Unknown [id number] 2.16.840.1.563895.3.579.2 .1258 1943 Unknown [id number] 2.16.840.1.909108.3.579.2 .1258 1943 Unknown [id number] 2.16.840.1.907924.3.579.2 .1258 1943 Unknown [id number] 2..840.1.068394.3.579.2 .1258 1943 Unknown [id number] 2..840.1.351481.3.579.2 .1258 1943 Unknown [id number] 2..840.1.675487.3.579.2 .1258 1943 Unknown [id number] 2..840.1.282459.3.579.2 .1258 1943 Unknown [id number] 2.16.840.1.053959.3.579.2 .1258 1943 Unknown [id number] 2..840.1.911999.3.579.2 .1258 1943 Unknown [id number] 2.16.840.1.721245.3.579.2 .1258 1943 Unknown [id number] 2.16.840.1.309159.3.579.2 .1258 1943 Unknown [id number] 2.16.840.1.087920.3.579.2 .1258 1943 Unknown [id number] 2.16.840.1.830989.3.579.2 .12584 Unknown [id number] 2.16.840.1.753835.3.579.2 .1259 1943 Unknown [id number] 2.16.840.1.620749.3.579.2 .1286 1943 Unknown [id number] 2.16.840.1.469966.3.579.2 .1286 1943 Unknown [id number] 2.16.840.1.374950.3.579.2 .1286 Social History Date Type Detail Facility Start: 03-20-2022 End: 02-06-2023 Tobacco smoking status NHIS Never smoked tobacco [facility] Start: 03-20-2022 End: 02-06-2023 Tobacco use and exposure Smokeless tobacco non-user [facility] Start: 07-26-2023 End: 11-02-2023 Alcoholic beverage intake Lifetime non-drinker (finding) [facility] Start: 07-12-2023 End: 11-02-2023 History of Social function [facility] Start: 07-12-2023 End: 11-02-2023 Tobacco use panel [facility] Start: 1945 Sex assigned at Not on file [facility] Start: 10-29-2023 Alcoholic beverage intake Current non-drinker of alcohol (finding) [facility] Adolescent depressio n screening assessment 0 [facility] Start: 09-10-2014 Sex Male (finding) [facility] Clinical Notes 11-02-2023 to 01-21-2024 Soledad Cabral, CAVITY PUMP OPERATOR - 01/21/2024 1:30 PM Alonso Cabral, ORALIA - 01/15/2024 3:00 PM Jose Hermosillo, PT - 11/28/2023 9:00 AM Bobbi Cabral NP - 11/05/2023 11:27 AM EDT Note Date & Type Note Facility 01-21-2024 History of Presen t illness Narrative Images from the original note were not included. Cristian Wagner is a 78 y.o. male presents with chief complaint of Follow-up HPI: HPI Patient is present for a follow up for lower back pain. Patient reports he feels the same as he did last visit. He finished the Prednisone and states he does not feel that it helped. He does have a follow up with the orthopedic designer on 01/25/2024. SUBJECTIVE: MEDICATIONS: Current Outpatient Medications Medication Instructions aspirin 81 mg, Daily RT atorvastatin (LIPITOR) 20 mg, Daily RT lisinopril 10 mg, 2 times daily meclizine (ANTIVERT) 12.5 mg, Oral, 2 times daily PRN metoprolol succinate XL (Toprol-XL) 50 MG 24 hr tablet Every 24 hours I have reviewed and reconciled the history and medication list with the patient today. REVIEW OF SYMPTOMS: Review of Systems Constitutional: Negative for fatigue. HENT: Negative. Respiratory: Negative. Negative for cough, shortness of breath and wheezing. Cardiovascular: Negative for chest pain and palpitations. Gastrointestinal: Negative. Genitourinary: Negative. Skin: Negative. Neurological: Negative. Psychiatric/Behavioral: Negative. OBJECTIVE: Visit Vitals Smoking Status Never Physical Exam Vitals and nursing note reviewed. Cardiovascular: Rate and Rhythm: Normal rate and regular rhythm. Pulses: Normal pulses. Heart sounds: Normal heart sounds. Pulmonary: Effort: Pulmonary effort is normal. Breath sounds: Normal breath sounds. Abdominal: General: Abdomen is flat. Bowel sounds are normal. Palpations: Abdomen is soft. Musculoskeletal: General: Normal range of motion. Cervical back: Normal range of motion and neck supple. Skin: General: Skin is warm and dry. Neurological: General: No focal deficit present. Mental Status: He is oriented to person, place, and time. ASSESSMENT AND PLAN: Assessment/Plan Diagnoses and all orders for this visit: Arthritis of lumbar spine-patient has appointment with ortho this week. Pain controlled with tylenol and ibuprofen Essential hypertension (CMS/HCC)-stable continue on current medications. documented in this encounter [facility] 01-15-2024 History of Presen t illness Narrative Images from the original note were not included. Cristian Wagner is a 78 y.o. male presents with chief complaint of Back Pain HPI: HPI Patient is present with c/o ongoing back pain and sciatica pain. Patient states he is having shooting pain from his left side lower back down his butt and down the leg. Patient reports he does not feel that physical therapy did anything to help this. Patient states this current flare up has been ongoing for a week and that he is struggling to walk. SUBJECTIVE: MEDICATIONS: Current Outpatient Medications Medication Instructions aspirin 81 mg, Oral, Daily RT atorvastatin (LIPITOR) 20 mg, Oral, Daily RT lisinopril 10 mg, Oral, 2 times daily meclizine (ANTIVERT) 12.5 mg, Oral, 2 times daily PRN metoprolol succinate XL (Toprol-XL) 50 MG 24 hr tablet Every 24 hours I have reviewed and reconciled the history and medication list with the patient today. REVIEW OF SYMPTOMS: Review of Systems Constitutional: Negative for fatigue. HENT: Negative. Respiratory: Negative. Negative for cough, shortness of breath and wheezing. Cardiovascular: Negative for chest pain and palpitations. Gastrointestinal: Negative. Genitourinary: Negative. Musculoskeletal: Positive for back pain (down left leg). Skin: Negative. Neurological: Negative. Psychiatric/Behavioral: Negative. OBJECTIVE: Visit Vitals Smoking Status Never Physical Exam Vitals and nursing note reviewed. Cardiovascular: Rate and Rhythm: Normal rate and regular rhythm. Pulses: Normal pulses. Heart sounds: Normal heart sounds. Pulmonary: Effort: Pulmonary effort is normal. Breath sounds: Normal breath sounds. Abdominal: General: Abdomen is flat. Bowel sounds are normal. Palpations: Abdomen is soft. Musculoskeletal: Cervical back: Normal range of motion and neck supple. Lumbar back: Decreased range of motion. Comments: Pain radiating down left leg. Skin: General: Skin is warm and dry. Neurological: General: No focal deficit present. Mental Status: He is oriented to person, place, and time. ASSESSMENT AND PLAN: Assessment/Plan Diagnoses and all orders for this visit: Low back pain radiating to left lower extremity steroid sent. P.T. did not improve symptoms referral made for specialist. Essential hypertension (CMS/HCC)-stable continue on current medications. documented in this encounter [facility] 11-28-2023 History of Presen t illness Narrative Physical Therapy Treatment Visit Patient Name: Cristian Wagner Today's Date: 11/28/2023 Encounter Diagnoses Name Primary? Acute right-sided low back pain without sciatica Yes Vertigo Visit number: 5 Timed Code Treatment Minutes: 45 minutes Total Treatment Time: 60 minutes Time In: 0900 Time Out: 1000 History: Pt states he has been having pain in back that is now going down to his left calf. States he can barely walk in the morning due to pain. Took 5 days of Prednisone, only felt better on the first day. Pt states pain is mostly in his butt cheeks and in left lower leg. Pt states he normally walks about 1.5 miles every day but now can only make it about 3/4 a mile due to pain in low back. Precautions: [place] Subjective: Pt. Continues have 9/10 back pain while getting out of bed in the morning but after moving around for couple hours his back pain decreases to a 4/10. Pain: 9/10 to 4/10 Objective: PT Evaluation (11/12/2023) LUMBAR SPINE AROM: full flexion with increase pain noted with repeated movement, extension limited but no increase pain with repeated movements Joint play: limited mobility upper lumbar region Strength: bilateral hips 4/5, knees and ankles 4+/5; core strength is fair Muscle length: right SLR 51 degrees flexion, left 40 degrees flexion Palpation: mild to moderate tenderness left lateral calf Special Test: negative slump testing bilateral Neurological: Reflexes: 2+ bilateral patellar Myotomes: negative bilateral Dermatomes: negative bilateral Special Test: negative clonus Treatment: Education: HEP education with demonstration, Educated on Eval Findings and POC Manual Therapy: (25 minutes) Manual traction with SB. Passive ROM, Joint mobilization, Soft Tissue Mobilization, Myofascial Release, Muscle Energy Technique, Neural Mobilization, Myofascial Cupping, Dry Needling, IASTM, and Scar mobilization as needed. Therapeutic Exercise: (20 minutes) Strength, Endurance, Flexibility, ROM, HEP, Neural Mobilization, Power, and Core Stability as needed. Pt instructed in and performed home program this date with good understanding. Discussed benefit of stretching at home prior to getting out of bed. Also discussed core strengthening exercises once pain is more manageable. Therapeutic Activity: Exercises to improve dynamic activities, functional tasks, functional mobility to return to prior activity level as needed. Neuromuscular re-education: Balance Training, Muscle Facilitation, Dynamic Stability, Core Stabilization, and Blood Flow Restriction Training (BFRT) as needed. Modalities: IFC/HP x15 minutes to low back in prone. Heat, Ice, Electrical Stimulation, Ultrasound, Cervical Mechanical Traction, Lumbar Mechanical Traction, Iontophoresis, and Fluidotherapy as needed. Assessment: Pt is 78 y/o male with complaints of worsening chronic low back pain and left lower leg pain. Pt with decrease pain noted with repeated extension based activities. Performed more manual stretching today to help improve muscle flexibility. Pt. Tolerated well and felt a lot better after PT session. Pt. Was educated on more hamstring stretching for home program. Outcome Measure: Lower Extremity Functional Scale (LEFS): Rehab Diagnosis: low back pain, left lower leg pain Short Term Goal: To be met in 2 weeks Goal 1: Pt to be instructed in home exercise program. Group Home Goals: To be met in 10 weeks Goal 1: Pt to report independence and compliance with home program. Goal 2: Pt to have full trunk ROM without complaints of increase pain at end ranges to assist with functional tasks. Goal 3: Pt to report pain no greater than 3/10 with function tasks, ADL's, and work related activities. Goal 4: Pt to score no less than 40/80 on LEFS indicating improved QOL. Goal 5: Pt to achieve good core strength for improved lumbar stability. Pt will benefit from skilled PT for 2x/week from 11/12/2023 to 01/21/2024 to address the above impairments. I hereby deem this POC medically necessary. Please sign below. Date: documented in this encounter [facility] 11-06-2023 Telephone encounter Note Form atting of this note might be different from the original. Cristian would like Pt referral to be sent to the place in [place] . I see he had one for Vertigo but this is to be for his back - I dont see one for that but he said it was to have been sent a couple weeks ago . Cristian -[phone] Please call and give him the ph# Ty [facility] 11-06-2023 Miscellaneous Notes Formattin g of this note might be different from the original. Cristian would like Pt referral to be sent to the place in [place] . I see he had one for Vertigo but this is to be for his back - I dont see one for that but he said it was to have been sent a couple weeks ago . Cristian -[phone] Please call and give him the ph# Ty documented in this encounter [facility] 11-05-2023 Telephone encounter Note Form atting of this note might be different from the original. Pt is willing to do PT at the [facility] [address] [facility]. [facility] 11-05-2023 Miscellaneous Notes Formattin g of this note might be different from the original. Pt is willing to do PT at the [facility] [address] [facility]. documented in this encounter [facility] 11-05-2023 History of Presen t illness Narrative Referral placed documented in this encounter [facility] 11-02-2023 History of Presen t illness Narrative Images from the original note were not included. Cristian Wagner is a 78 y.o. male presents with chief complaint of Back Pain HPI: Back Pain Patient presents for evaluation of low back problems. Symptoms have been present for 3 months and include pain in lower back (aching, sharp, stabbing, and throbbing in character; 7/10 in severity). Initial inciting event: none. Symptoms are worse at nighttime. Alleviating factors identifiable by the patient are none. Aggravating factors identifiable by the patient are laying down. Treatments initiated by the patient: none. Previous lower back problems: none. Previous work up: none. Previous treatments: none. Back Pain Pertinent negatives include no chest pain. SUBJECTIVE: MEDICATIONS: ALLERGIES Current Outpatient Medications Medication Instructions aspirin 81 mg, Oral, Daily RT atorvastatin (LIPITOR) 20 mg, Oral, Daily RT lisinopril 10 mg, Oral, 2 times daily meclizine (ANTIVERT) 12.5 mg, Oral, 2 times daily PRN metoprolol succinate XL (Toprol-XL) 50 MG 24 hr tablet Every 24 hours Allergies Allergen Reactions Penicillins Warfarin GI bleeding PAST MEDICAL HISTORY: SOCIAL HISTORY SURGICAL HISTORY: History reviewed. No pertinent past medical history. Social History Tobacco Use Smoking status: Never Smokeless tobacco: Never Substance Use Topics Alcohol use: Never Drug use: Never History reviewed. No pertinent surgical history. REVIEW OF SYMPTOMS: Review of Systems Constitutional: Negative for fatigue. HENT: Negative. Respiratory: Negative. Negative for cough, shortness of breath and wheezing. Cardiovascular: Negative for chest pain and palpitations. Gastrointestinal: Negative. Genitourinary: Negative. Musculoskeletal: Positive for back pain. Skin: Negative. Neurological: Negative. Psychiatric/Behavioral: Negative. OBJECTIVE: Vitals: 11/02/23 1031 BP: 128/80 Pulse: 76 Resp: 18 SpO2: 99% Physical Exam Vitals and nursing note reviewed. Cardiovascular: Rate and Rhythm: Normal rate and regular rhythm. Pulses: Normal pulses. Heart sounds: Normal heart sounds. Pulmonary: Effort: Pulmonary effort is normal. Breath sounds: Normal breath sounds. Abdominal: General: Abdomen is flat. Bowel sounds are normal. Palpations: Abdomen is soft. Musculoskeletal: Cervical back: Normal range of motion and neck supple. Lumbar back: Tenderness (paraspinal) present. Decreased range of motion. Skin: General: Skin is warm and dry. Neurological: General: No focal deficit present. Mental Status: He is oriented to person, place, and time. ASSESSMENT AND PLAN: Assessment/Plan Diagnoses and all orders for this visit: Other chronic pain - XR LUMBAR SPINE AP/LAT/FLEX/EXT/OBLIQUES; Future Lumbar pain - predniSONE (Deltasone) 10 MG tablet; Take 1 tablet (10 mg) by mouth in the morning and 1 tablet (10 mg) before bedtime. Do all this for 5 days. Await results. May need P.T. and/or ortho referral No follow-ups on file. documented in this encounter [facility] Healthcare Evaluation note Diagnosis Acute right-sided low back pain without sciatica- Primary [facility] Diagnosis Acute right-sided low back pain without sciatica- Primary [facility]* Diagnosis Acute right-sided low back pain without sciatica- Primary [facility]* Diagnosis Piriformis syndrome of left side- Primary Wellness examination Arteriosclerosis of coronary artery (CMS/HCC) Essential hypertension (CMS/HCC) Unspecified essential hypertension Other cardiomyopathies (CMS/HCC) Mixed hyperlipidemia (CMS/HCC) Mixed hyperlipidemia Acute right-sided low back pain without sciatica- Primary [facility] Diagnosis Piriformis syndrome of left side- Primary Wellness examination Arteriosclerosis of coronary artery (CMS/HCC) Essential hypertension (CMS/HCC) Unspecified essential hypertension Other cardiomyopathies (CMS/HCC) Mixed hyperlipidemia (CMS/HCC) Mixed hyperlipidemia Acute right-sided low back pain without sciatica- Primary [facility]* Diagnosis Piriformis syndrome of left side- Primary Wellness examination Arteriosclerosis of coronary artery (CMS/HCC) Essential hypertension (CMS/HCC) Unspecified essential hypertension Other cardiomyopathies (CMS/HCC) Mixed hyperlipidemia (CMS/HCC) Mixed hyperlipidemia Acute right-sided low back pain without sciatica- Primary Vertigo Dizziness and giddiness documented [facility]* Diagnosis Piriformis syndrome of left side- Primary Wellness examination Arteriosclerosis of coronary artery (CMS/HCC) Essential hypertension (CMS/HCC) Unspecified essential hypertension Other cardiomyopathies (CMS/HCC) Mixed hyperlipidemia (CMS/HCC) Mixed hyperlipidemia Acute right-sided low back pain without sciatica- Primary [facility] Diagnosis Piriformis syndrome of left side- Primary Wellness examination Arteriosclerosis of coronary artery (CMS/HCC) Essential hypertension (CMS/HCC) Unspecified essential hypertension Other cardiomyopathies (CMS/HCC) Mixed hyperlipidemia (CMS/HCC) Mixed hyperlipidemia Acute right-sided low back pain without sciatica- Primary [facility]* Diagnosis Piriformis syndrome of left side- Primary Wellness examination Arteriosclerosis of coronary artery (CMS/HCC) Essential hypertension (CMS/HCC) Unspecified essential hypertension Other cardiomyopathies (CMS/HCC) Mixed hyperlipidemia (CMS/HCC) Mixed hyperlipidemia Low back pain radiating to left lower extremity- Primary Essential hypertension (CMS/HCC) Unspecified essential hypertension [facility] Diagnosis Elevated PSA- Primary Elevated prostate specific antigen (PSA) Prostate cancer (CMS-HCC)- Primary Malignant neoplasm of prostate Prostate cancer (CMS-HCC)- Primary Malignant neoplasm of prostate Prostate cancer (CMS-HCC)- Primary Malignant neoplasm of prostate Prostate cancer (CMS-HCC)- Primary Malignant neoplasm of prostate Prostate cancer (CMS-HCC)- Primary Malignant neoplasm of prostate Prostate cancer (CMS-HCC)- Primary Malignant neoplasm of prostate Prostate cancer (CMS-HCC)- Primary Malignant neoplasm of prostate Prostate cancer (CMS-HCC)- Primary Malignant neoplasm of prostate Abnormal stress test Other nonspecific abnormal cardiovascular system function study Hyperlipidemia, unspecified hyperlipidemia type [facility] Diagnosis Piriformis syndrome of left side- Primary Wellness examination Arteriosclerosis of coronary artery (CMS/HCC) Essential hypertension (CMS/HCC) Unspecified essential hypertension Other cardiomyopathies (CMS/HCC) Mixed hyperlipidemia (CMS/HCC) Mixed hyperlipidemia Arthritis of lumbar spine- Primary Essential hypertension (CMS/HCC) Unspecified essential hypertension [facility]* Diagnosis Other chronic pain- Primary Lumbar pain Lumbago documented in this encounter [facility] HealthcareInstructionsNot on filedocumented in this encounterProMedica [facility] SystemInstructionsNot on filedocumented in this encounterProMediMer[facility] SystemReason for visit Narrative* Rehabilitation - Outpatient (Routine) - Authorized Specialty Diagnoses / Procedures Referred By Contac t Referred To Contact Physical Therapy Diagnoses Acute right-sided low back pain without sciatica Procedures ME OFFICE/OUTPATIENT NEW HIGH MDM 60 MINUTES Soledad Cabral, ORAL[place] [address] [place] [address] Phone: tel: fax: [facility] [address] [facility] [address] [place] [address] Phone: tel: fax: Referral ID Status Reason Start Date Expiration Date Visits Requested Visits Authorized [id number] Authorized Specialty Services Required 11/07/2023 05/05/2024 20 20 [facility] Summary Purpose Family History No Family History Records FoundNo Family History Records FoundNo Family History Records FoundNo Family History Records Found Advance Directives No Advanced Directives Records FoundNo Advanced Directives Records FoundNo Advanced Directives Records FoundNo Advanced Directives Records Found Reason for Referral Specialty Diagnoses / Procedures Referred By Nathaniel christensen Referred To Contact Physical Therapy Diagnoses Acute right-sided low back pain without sciatica Procedures ME OFFICE/OUTPATIENT [facility] MDM 60 MINUTES Soledad Cabral, [employer] [address] [place] [address] Aamir Hermosillo, PT [address] [facility] [address] [place] [address] Referral ID Status Reason Start Date Expiration Date Visits Requested Visits Authorized [id number] Authorized Specialty Services Required 11/07/2023 05/05/2024 10 10 Additional Source Comments (unrecognized sect ion and content) No Status Records FoundNo Status Records FoundNo Status Records FoundNo Status Records Found INFORMATION SOURCE (unrecogn ized section and content) DATE CREATED AUTHOR 10/29/2023 [facility] DATE CREATED AUTHOR AUTHOR'S ORGANIZ ATION 10/31/2023 [facility] DATE CREATED AUTHOR AUTHOR'S ORGANIZ ATION 01/23/2024 [facility] DATE CREATED AUTHOR AUTHOR'S ORGANIZ ATION 01/26/2024 [facility] Care Teams (unrecognized sec tion and content) Forest Firefighter Relationship Specialty Start Date End Date Belinda Stephen MD [address] [place] [address] PCP - ACO Reach 06/29/22 Belinda Stephen MD [address] [place] [address] PCP - General Family Medicine 06/13/22 Forest Firefighter Relationship Specialty Start Date End Date Belinda Stephen MD [address] [place] [address] PCP - ACO Reach 06/29/22 Belinda Stephen MD [address] [place] [address] PCP - General Family Medicine 06/13/22 Forest Firefighter Relationship Specialty Start Date End Date Belinda Stephen MD [address] [place] [address] PCP - ACO Reach 06/29/22 Belinda Stephen MD [address] [place] [address] PCP - General Family Medicine 06/13/22 Forest Firefighter Relationship Specialty Start Date End Date Belinda Stephen MD [address] [place] [address] PCP - ACO Reach 06/29/22 Belinda Stephen MD [address] [place] [address] PCP - General Family Medicine 06/13/22 Forest Firefighter Relationship Specialty Start Date End Date Belinda Stephen MD [address] [place] [address] PCP - ACO Reach 06/29/22 Belinda Stephen MD [address] [place] [address] PCP - General Family Medicine 06/13/22 Forest Firefighter Relationship Specialty Start Date End Date Belinda Stephen MD [address] [place] [address] PCP - ACO Reach 06/29/22 Belinda Stephen MD [address] [place] [address] PCP - General Family Medicine 06/13/22 Forest Firefighter Relationship Specialty Start Date End Date Belinda Stephen MD [address] [place] [address] PCP - ACO Reach 06/29/22 Belinda Stehpen MD [address] [place] [address] PCP - General Family Medicine 06/13/22 Forest Firefighter Relationship Specialty Start Date End Date Belinda Stephen MD [address] [place] [address] PCP - ACO Reach 06/29/22 Belinda Stephen MD [address] [place] [address] PCP - General Family Medicine 06/13/22 Forest Firefighter Relationship Specialty Start Date End Date Belinda Stephen MD [address] [place] [address] PCP - ACO Reach 06/29/22 Belinda Stephen MD [address] [place] [address] PCP - General Family Medicine 06/13/22 Forest Firefighter Relationship Specialty Start Date End Date Belinda Stephen MD [address] [place] [address] PCP - ACO Reach 06/29/22 Belinda Stephen MD [address] [place] [address] PCP - General Family Medicine 06/13/22 Forest Firefighter Relationship Specialty Start Date End Date Belinda Stephen MD [address] [place] [address] PCP - ACO Reach 06/29/22 Belinda Stephen MD [address] [place] [address] PCP - General Family Medicine 06/13/22 Forest Firefighter Relationship Specialty Start Date End Date Belinda Stephen MD [address] [place] [address] PCP - ACO Reach 06/29/22 Belinda Stephen MD [address] [place] [address] PCP - General Family Medicine 06/13/22 Forest Firefighter Relationship Specialty Start Date End Date Belinda Stephen MD [address] [place] [address] PCP - ACO Reach 06/29/22 Belinda Stephen MD [address] [place] [address] PCP - General Family Medicine 06/13/22 Forest Firefighter Relationship Specialty Start Date End Date Belinda Stephen MD [address] [place] [address] PCP - General Family Medicine 06/06/17 Forest Firefighter Relationship Specialty Start Date End Date Belinda Stephen MD [address] [place] [address] PCP - General Family Medicine 06/06/17 Forest Firefighter Relationship Specialty Start Date End Date Belinda Stephen MD [address] [place] [address] PCP - ACO Reach 06/29/22 Belinda Stephen MD [address] [place] [address] PCP - General Family Medicine 06/13/22 Forest Firefighter Relationship Specialty Start Date End Date Belinda Stephen MD [address] [place] [address] PCP - ACO Reach 06/29/22 Belinda Stephen MD [address] [place] [address] PCP - General Family Medicine 06/13/22 Forest Firefighter Relationship Specialty Start Date End Date Belinda Stephen MD [address] [place] [address] PCP - ACO Reach 06/29/22 Belinda Stephen MD [address] [place] [address] PCP - General Family Medicine 06/13/22 Reason for Visit (unrecogniz ed section and content) Specialty Diagnoses / Procedures Referred By Contac t Referred To Contact Physical Therapy Diagnoses Acute right-sided low back pain without sciatica Procedures ME OFFICE/OUTPATIENT NEW HIGH MDM 60 MINUTES Soledad Cabral NP [address] [place] [address] [address] [facility] [address] [place] [address] Referral ID Status Reason Start Date Expiration Date Visits Requested Visits Authorized [id number] Authorized Specialty Services Required 11/07/2023 05/05/2024 10 10 Referral ID Status Reason Start Date Expiration Date Visits Requested Visits Authorized [id number] Authorized Specialty Services Required 11/07/2023 05/05/2024 20 20 Reason Comments Back Pain Reason Comments Med Refill Reason Comments Follow-up Reason Comments Back Pain FOR RECORDS PERTAINING TO PATIENTS WHO ARE OR HAVE BEEN ENROLLED IN A CHEMICAL DEPENDENCY/SUBSTANCEABUSE PROGRAM, SOME INFORMATION MAY BE OMITTED. This clinical summary was aggregated from multiple sources. Caution should be exercised in using it in the provision of clinical care. This summary normalizes information from multiple sources, and as a consequence, information in this document may materially change the coding, format and clinical context of patient data. In addition, data may be omitted in some cases. CLINICAL DECISIONS SHOULD BE BASED ON THE PRIMARY CLINICAL RECORDS. [facility] [employer] [facility] provides no warranty or guarantee of the accuracy or completeness of information in this document.
== END 2024-02-08 08:25 | disposition home or self-care (01) ==
LOC: MRI 08:24
PROVIDERS: PCP Family Medicine; Visit Provider Physician Assistant
DX: M54.50 Low back pain, unspecified (principal); M51.362 Other intervertebral disc degeneration, lumbar region with discogenic back pain and lower extremity pain; M43.16 Spondylolisthesis, lumbar region; M51.369 Other intervertebral disc degeneration, lumbar region without mention of lumbar back pain or lower extremity pain
CPT/HCPCS: 72148